=== PATIENT | male | born 1960 | race Caucasian/White ===

== ENCOUNTER 2020-11-30 19:02 | Emergency (ER) | payer OTHER ==
[~2020-11-30] VITALS: Ht 193 cm; Wt 106.6 kg
== END 2020-11-30 21:30 | disposition home or self-care (01) ==
LOC: ER 19:02
DX: S61.011A Laceration without foreign body of right thumb without damage to nail, initial encounter (principal); I25.10 Atherosclerotic heart disease of native coronary artery without angina pectoris; E78.5 Hyperlipidemia, unspecified; I25.2 Old myocardial infarction; Z95.5 Presence of coronary angioplasty implant and graft; Z23 Encounter for immunization; W01.10XA Fall on same level from slipping, tripping and stumbling with subsequent striking against unspecified object, initial encounter
CPT/HCPCS: 12001; 73140; 90471; 90714; 99283-25